=== PATIENT | female | born 1960 | race Caucasian/White ===

== ENCOUNTER → 2021-01-05 | Day surgery (SDC) | payer BC ==
[~2021-01-05] MED LIST: ALLERGY PO; CALCIUM PO; EXCEDRIN EXTRA1 EAC1 PO; FENTANYL CITRATE/PF 100MCG/2 ML INJ ONE; FISH OIL 1,0001 EAC2 PO; MIDAZOLAM HCL 2 MG/2 ML VIAL ONE; MULTIVITAMINS1 EAC8 PO; NAPROXEN250 MG PO; OR PHACO EYE KIT ONE; PREOP PHACO EYE KIT ONE; VITAMIN D PO
[2021-01-05 11:10] VITALS: BP 113/72
== END | disposition home or self-care (01) ==
LOC: OR 08:08
PROVIDERS: ATTEND Ophthalmology
DX: H25.11 Age-related nuclear cataract, right eye (principal); Z88.0 Allergy status to penicillin; Z86.16 Personal history of COVID-19
CPT/HCPCS: 66984; J2250; J3010